=== PATIENT | female | born 1965 | race Asian ===

== ENCOUNTER 2016-11-21 22:16 | Emergency (ER) | payer OTHER ==
[~2016-11-21] VITALS: Ht 160 cm; Wt 79.0 kg
[2016-11-21] MEDS ORDERED: KETOROLAC 60MG/2ML VIAL IM ONE (23:30)
[2016-11-21] MEDS ORDERED: CYCLOBENZAPRINE 10MG TABLET PO ONE (23:30)
[2016-11-22 00:40] VITALS: BP 160/54
== END 2016-11-22 00:51 | disposition home or self-care (01) ==
LOC: ER 22:17
DX: M54.5 Low back pain (principal); M54.30 Sciatica, unspecified side; R07.89 Other chest pain; E11.9 Type 2 diabetes mellitus without complications; E78.00 Pure hypercholesterolemia, unspecified; V43.52XA Car driver injured in collision with other type car in traffic accident, initial encounter; Y92.488 Other paved roadways as the place of occurrence of the external cause
CPT/HCPCS: 71010; 93005; 96372; 99284; J1885